=== PATIENT | female | born 1965 | race African-American/Black ===

== ENCOUNTER 2019-07-21 10:21 | Day surgery (SDC) | payer MEDICARE, MEDICAID ==
[~2019-07-21 10:21] MED LIST: Zoledronic Acid/Mannitol&Water 5 MG in Premix Bag 1 BAG IVPB SCH
[2019-07-21] MEDS ORDERED: Sodium Chloride 0.9% 20 ML ONE (10:27)
[2019-07-21 10:37] VITALS: BP 186/102; TEMP 98.8
== END 2019-07-21 12:10 ==
LOC: ONC/OP 10:21
PROVIDERS: ATTEND Family Medicine
DX: M81.0 Age-related osteoporosis without current pathological fracture (principal); Z88.1 Allergy status to other antibiotic agents
CPT/HCPCS: 96365; J3489